=== PATIENT | male | born 1985 | race African-American/Black ===

== ENCOUNTER 2022-04-01 11:47 | Emergency (ER) | payer SELFPAY ==
[~2022-04-01] VITALS: Ht 175.3 cm; Wt 75.0 kg
[2022-04-01] MEDS ORDERED: KETOROLAC TROMETHAMINE 30 MG/ML VIAL IM ONE (13:00)
[2022-04-01 13:40] VITALS: BP 136/86
[2022-04-01] MEDS ORDERED: IBUP-1492 PO (14:38)
== END 2022-04-01 14:42 | disposition home or self-care (01) ==
LOC: EMS 11:47
DX: M25.522 Pain in left elbow (principal)
CPT/HCPCS: 99283; 73080; 96372; J1885